=== PATIENT | female | born 1990 | race Caucasian/White ===

== ENCOUNTER 2018-05-25 20:40 | Inpatient (IN) | payer MEDICAID ==
[~2018-05-25] VITALS: Ht 167.6 cm; Wt 75.6 kg
[2018-05-25 20:56] VITALS: BP 122/83
[2018-05-25 21:32] LABS: PH, VENOUS 7.469 pH (7.320-7.420)
[2018-05-25 21:37] LABS: BASOPHILS # (AUTO) 0.04 x10^3/uL (0-0.1); BASOPHILS % (AUTO) 0 % (0-1); EOSINOPHILS # (AUTO) 0.02 x10^3/uL (0-0.4); EOSINOPHILS % (AUTO) 0 % (1-7); LYMPHOCYTES # (AUTO) 1.63 x10^3/uL (1-3.4); LYMPHOCYTES % (AUTO) 11 % (22-44); MD NO; MEAN CORPUSCULAR HEMOGLOBIN 36.4 pg (27.0-34.8); MEAN CORPUSCULAR HGB CONC 34.9 g/dL (32.4-35.8); MEAN CORPUSCULAR VOLUME 104.2 fL (80-100); MEAN PLATELET VOLUME 8.1 fL (7.4-10.4); MONOCYTES # (AUTO) 0.98 x10^3/uL (0.2-0.8); MONOCYTES % (AUTO) 7 % (2-9); NEUTROPHILS # (AUTO) 12.03 x10^3/uL (1.8-6.8); NEUTROPHILS % (AUTO) 82 % (42-75); PLATELET COUNT 353 x10^3/uL (130-400); RED BLOOD COUNT 4.31 x10^6/uL (3.82-5.3)
[2018-05-25 21:41] LABS: ACETONE, SERUM Negative (Negative)
[2018-05-25 21:50] LABS: MICROSCOPIC AUTO
[2018-05-25 21:52] LABS: ALBUMIN 3.5 g/dL (3.4-5.0); ANION GAP 15 mmol/L (5-15); CALCIUM 9.1 mg/dL (8.5-10.1); CHLORIDE 97 mmol/L (98-107); CREATININE 1.07 mg/dL (0.55-1.02)
[2018-05-25] MEDS ORDERED: KETOROLAC 30 MG/1 ML IVPush ONE (22:00)
[2018-05-25] MEDS ORDERED: SODIUM CHLORIDE 0.9% 1,000ML IVBOLUS ONE (22:00)
[2018-05-25] MEDS ORDERED: PROCHLORPERAZINE 5 MG/ML, 2ML IVPush ONE (22:00)
[2018-05-25] MEDS ORDERED: PROCHLORPERAZINE 5 MG/ML, 2ML ONE (22:03)
[2018-05-25] MEDS ORDERED: KETOROLAC 30 MG/1 ML ONE (22:03)
[2018-05-25 22:15] LABS: CULTURE INDICATED? YES
[2018-05-25] MEDS ORDERED: CEFTRIAXONE PMX 1GM/50ML 50 ML ONE (22:28)
[2018-05-25] MEDS ORDERED: PLEASE ENTER ALLERGIES MC SCH (22:30)
[2018-05-25] MEDS ORDERED: CEFTRIAXONE 1,000 MG in SODIUM CHLORIDE 0.9% 50 ML IVPB ONE (22:30)
[2018-05-25 22:54] LABS: ALBUMIN 2.9 g/dL (3.4-5.0); BILIRUBIN, DIRECT 0.5 mg/dL (0.1-0.2)
[2018-05-25 22:57] LABS: BILIRUBIN,INDIRECT 0.9 mg/dL (0.0-2.0); BILIRUBIN,TOTAL 1.4 mg/dL (0.2-1.0)
[2018-05-25] MEDS ORDERED: BISACODYL 10 MG SUPP PR PRN (23:30)
[2018-05-25] MEDS ORDERED: DOCUSATE 100 MG CAPSULE PO PRN (23:30)
[2018-05-25] MEDS ORDERED: ONDANSETRON 2MG/ML, 2ML IVPush PRN (23:30)
[2018-05-25] MEDS ORDERED: ONDANSETRON ODT 4 MG PO PRN (23:30)
[2018-05-25] MEDS: SODIUM CHLORIDE 0.9% 1,000 ML IV SCH ×2 (23:32)
[2018-05-26 00:25] LABS: HEMOGLOBIN A1C 8.7 % (4.2-6.3)
[2018-05-26] MEDS ORDERED: INSU100C5 SQ-INSULIN (01:17)
[2018-05-26] MEDS: SODIUM CHLORIDE 0.9% 1,000 ML IV SCH ×4 (01:56→20:32)
[2018-05-26] MEDS: ACETAMINOPHEN 325 MG TABLET PO PRN ×2 (01:58→11:03)
[2018-05-26 03:02] LABS: ANION GAP 11 mmol/L (5-15); CALCIUM 7.4 mg/dL (8.5-10.1); CHLORIDE 103 mmol/L (98-107); CREATININE 0.75 mg/dL (0.55-1.02)
[2018-05-26 03:10] LABS: BASOPHILS # (AUTO) 0.03 x10^3/uL (0-0.1); BASOPHILS % (AUTO) 0 % (0-1); EOSINOPHILS # (AUTO) 0.03 x10^3/uL (0-0.4); EOSINOPHILS % (AUTO) 0 % (1-7); LYMPHOCYTES # (AUTO) 1.84 x10^3/uL (1-3.4); LYMPHOCYTES % (AUTO) 21 % (22-44); MD NO; MEAN CORPUSCULAR HEMOGLOBIN 36.1 pg (27.0-34.8); MEAN CORPUSCULAR HGB CONC 34.7 g/dL (32.4-35.8); MEAN PLATELET VOLUME 7.9 fL (7.4-10.4); MONOCYTES # (AUTO) 0.73 x10^3/uL (0.2-0.8); MONOCYTES % (AUTO) 8 % (2-9); NEUTROPHILS # (AUTO) 6.19 x10^3/uL (1.8-6.8); NEUTROPHILS % (AUTO) 70 % (42-75); PLATELET COUNT 245 x10^3/uL (130-400); RED BLOOD COUNT 3.65 x10^6/uL (3.82-5.3); RED CELL DISTRIBUTION WIDTH 14.7 % (9.6-15.2)
[2018-05-26 03:16] VITALS: BP 107/70
[2018-05-26 08:00] VITALS: BP 122/83
[2018-05-26] MEDS: SENNA/DOCUSATE TABLET PO SCH (09:00)
[2018-05-26] MEDS: KETOROLAC 30 MG/1 ML IVPush PRN ×3 (09:47→22:19)
[2018-05-26 10:12] LABS: HEMOGLOBIN A1C 8.4 % (4.2-6.3)
[2018-05-26 13:39] VITALS: BP 130/89
[2018-05-26 19:46] VITALS: BP 135/93
[2018-05-26] MEDS ORDERED: CEFTRIAXONE 1,000 MG IV SCH (21:00)
[2018-05-26] MEDS: CEFTRIAXONE 1,000 MG in SODIUM CHLORIDE 0.9% 50 ML IVPB SCH (22:20)
[2018-05-27 01:28] VITALS: BP 133/92
[2018-05-27] MEDS: KETOROLAC 30 MG/1 ML IVPush PRN ×4 (04:18→23:07)
[2018-05-27 04:41] LABS: ANION GAP 9 mmol/L (5-15); CALCIUM 8.1 mg/dL (8.5-10.1); CHLORIDE 103 mmol/L (98-107); CREATININE 0.77 mg/dL (0.55-1.02)
[2018-05-27] MEDS: SODIUM CHLORIDE 0.9% 1,000 ML IV SCH (06:36)
[2018-05-27 06:47] VITALS: BP 141/92
[2018-05-27] MEDS: SENNA/DOCUSATE TABLET PO SCH (08:14)
[2018-05-27] MEDS ORDERED: MAGNESIUM SULFATE PMX 2GM/50ML 50 ML IV ONE (09:30)
[2018-05-27 12:28] VITALS: BP 125/86
[2018-05-27 19:06] VITALS: BP 109/73
[2018-05-27] MEDS: CEFTRIAXONE 1,000 MG in SODIUM CHLORIDE 0.9% 50 ML IVPB SCH (22:10)
[2018-05-28 02:14] VITALS: BP 139/93
[2018-05-28] MEDS: KETOROLAC 30 MG/1 ML IVPush PRN (05:19)
[2018-05-28 05:44] LABS: ANION GAP 6 mmol/L (5-15); CALCIUM 8.7 mg/dL (8.5-10.1); CHLORIDE 99 mmol/L (98-107); CREATININE 0.87 mg/dL (0.55-1.02)
[2018-05-28 06:46] VITALS: BP 148/93
[2018-05-28] MEDS: SENNA/DOCUSATE TABLET PO SCH (07:44)
[2018-05-28] MEDS ORDERED: SULF-169 PO (08:21)
== END 2018-05-28 09:49 | disposition home or self-care (01) | DRG 872 ==
LOC: ED 23:16 → EDIP 23:20 → 3NE 23:25 → DCLOUNGE 05-28 09:45
PROVIDERS: ADMIT Hospitalist; ATTEND Hospitalist
DX: A41.9 Sepsis, unspecified organism (principal); N17.9 Acute kidney failure, unspecified; N10 Acute pyelonephritis; E87.1 Hypo-osmolality and hyponatremia; E83.42 Hypomagnesemia; E10.65 Type 1 diabetes mellitus with hyperglycemia; R65.20 Severe sepsis without septic shock; E86.1 Hypovolemia; Z79.4 Long term (current) use of insulin; F17.200 Nicotine dependence, unspecified, uncomplicated; Z96.41 Presence of insulin pump (external) (internal); D75.89 Other specified diseases of blood and blood-forming organs; M54.9 Dorsalgia, unspecified; B96.89 Other specified bacterial agents as the cause of diseases classified elsewhere; Z82.5 Family history of asthma and other chronic lower respiratory diseases; Z82.49 Family history of ischemic heart disease and other diseases of the circulatory system
CPT/HCPCS: 36415; 80048; 80076; 81001; 82010; 82040; 82803; 82962; 83036; 83605; 83690; 83735; 84703; 85025; 87040; 87077; 87086; 87186; 96365; 99291; J0696; J1885; J0780; J3475; J7030

== ENCOUNTER 2018-06-16 12:17 | Emergency (ER) | payer MEDICAID ==
[~2018-06-16] VITALS: Ht 170.2 cm; Wt 72.8 kg
[~2018-06-16 12:17] MED LIST: INSU100C5 SQ-INSULIN; SULF-169 PO
[2018-06-16] MEDS ORDERED: SODIUM CHLORIDE 0.9% 1,000ML IV ONE (13:30)
[2018-06-16] MEDS ORDERED: SODIUM CHLORIDE FLUSH 10ML SYR IVF ONE (13:30)
[2018-06-16] MEDS ORDERED: KETOROLAC 30 MG/1 ML IVPush ONE (13:30)
[2018-06-16] MEDS ORDERED: KETOROLAC 30 MG/1 ML ONE (13:36)
[2018-06-16 13:57] LABS: MICROSCOPIC INDICATED
[2018-06-16 14:01] LABS: ALANINE AMINOTRANSFERASE 20 U/L (12-78); ALBUMIN 3.4 g/dL (3.4-5.0); ANION GAP 8 mmol/L (5-15); CALCIUM 8.8 mg/dL (8.5-10.1); CHLORIDE 99 mmol/L (98-107); CREATININE 0.76 mg/dL (0.55-1.02)
[2018-06-16 14:04] LABS: BASOPHILS # (AUTO) 0.01 x10^3/uL (0-0.1); BASOPHILS % (AUTO) 0 % (0-1); EOSINOPHILS # (AUTO) 0.01 x10^3/uL (0-0.4); EOSINOPHILS % (AUTO) 0 % (1-7); LYMPHOCYTES # (AUTO) 0.96 x10^3/uL (1-3.4); LYMPHOCYTES % (AUTO) 8 % (22-44); MD NO; MEAN CORPUSCULAR HEMOGLOBIN 35.7 pg (27.0-34.8); MEAN CORPUSCULAR HGB CONC 34.5 g/dL (32.4-35.8); MEAN CORPUSCULAR VOLUME 103.4 fL (80-100); MEAN PLATELET VOLUME 8.3 fL (7.4-10.4); MONOCYTES # (AUTO) 0.71 x10^3/uL (0.2-0.8); MONOCYTES % (AUTO) 6 % (2-9); NEUTROPHILS # (AUTO) 10.26 x10^3/uL (1.8-6.8); NEUTROPHILS % (AUTO) 86 % (42-75); PLATELET COUNT 240 x10^3/uL (130-400); RED BLOOD COUNT 3.69 x10^6/uL (3.82-5.3); RED CELL DISTRIBUTION WIDTH 14.4 % (9.6-15.2)
[2018-06-16 14:06] LABS: ALKALINE PHOSPHATASE 108 U/L (45-117); BILIRUBIN,TOTAL 1.3 mg/dL (0.2-1.0); TOTAL PROTEIN 7.5 g/dL (6.4-8.2)
[2018-06-16 14:10] LABS: CULTURE INDICATED? YES
[2018-06-16 15:11] VITALS: BP 128/87
== END 2018-06-16 15:32 | disposition home or self-care (01) ==
LOC: ED 14:19
DX: N39.0 Urinary tract infection, site not specified (principal); E11.65 Type 2 diabetes mellitus with hyperglycemia
CPT/HCPCS: 36415; 80053; 81001; 83605; 84145; 84703; 85025; 87077; 87086; 87186; 96361; 96374; 99285; J1885; J7030

== ENCOUNTER 2018-07-05 20:38 | Inpatient (IN) | payer MEDICAID ==
[~2018-07-05] VITALS: Ht 170.2 cm; Wt 72.9 kg
[2018-07-05] MEDS ORDERED: KETOROLAC 30 MG/1 ML IVPush ONE (21:30)
[2018-07-05] MEDS ORDERED: MORPHINE SULFATE 4 MG/ML, 1ML IVPush PRN (21:30)
[2018-07-05] MEDS ORDERED: SODIUM CHLORIDE FLUSH 10ML SYR IVF ONE (21:30)
[2018-07-05] MEDS ORDERED: SODIUM CHLORIDE 0.9% 1,000ML IVBOLUS ONE (21:30)
[2018-07-05] MEDS ORDERED: KETOROLAC 30 MG/1 ML ONE (21:41)
[2018-07-05] MEDS ORDERED: MORPHINE SULFATE 4 MG/ML, 1ML ONE (21:41)
[2018-07-05 22:09] LABS: MEAN CORPUSCULAR HEMOGLOBIN 34.6 pg (27.0-34.8); MEAN CORPUSCULAR HGB CONC 34.9 g/dL (32.4-35.8); MEAN CORPUSCULAR VOLUME 99.2 fL (80-100); MEAN PLATELET VOLUME 8.1 fL (7.4-10.4); PLATELET COUNT 414 x10^3/uL (130-400); RED CELL DISTRIBUTION WIDTH 14.4 % (9.6-15.2)
[2018-07-05 22:22] LABS: ALANINE AMINOTRANSFERASE 9 U/L (12-78); ALBUMIN 2.5 g/dL (3.4-5.0); ANION GAP 13 mmol/L (5-15); CALCIUM 8.7 mg/dL (8.5-10.1); CHLORIDE 96 mmol/L (98-107); CREATININE 0.77 mg/dL (0.55-1.02)
[2018-07-05 22:27] LABS: ALKALINE PHOSPHATASE 116 U/L (45-117); BILIRUBIN,TOTAL 0.8 mg/dL (0.2-1.0); TOTAL PROTEIN 7.6 g/dL (6.4-8.2)
[2018-07-05 22:32] LABS: BASOPHILS # (AUTO) 0.03 x10^3/uL (0-0.1); BASOPHILS % (AUTO) 0 % (0-1); EOSINOPHILS # (AUTO) 0.03 x10^3/uL (0-0.4); EOSINOPHILS % (AUTO) 0 % (1-7); LYMPHOCYTES # (AUTO) 2.07 x10^3/uL (1-3.4); LYMPHOCYTES % (AUTO) 12 % (22-44); MD SCAN; MONOCYTES # (AUTO) 1.61 x10^3/uL (0.2-0.8); MONOCYTES % (AUTO) 9 % (2-9); NEUTROPHILS # (AUTO) 13.32 x10^3/uL (1.8-6.8); NEUTROPHILS % (AUTO) 78 % (42-75)
[2018-07-05 23:11] LABS: CULTURE INDICATED? YES; MICROSCOPIC INDICATED
[2018-07-05] MEDS ORDERED: CEFTRIAXONE PMX 1GM/50ML 50 ML ONE (23:37)
[2018-07-06] MEDS ORDERED: ONDANSETRON ODT 4 MG PO PRN
[2018-07-06] MEDS ORDERED: hydrALAzine 20 MG/ML, 1ML IVPush PRN
[2018-07-06] MEDS ORDERED: IBUPROFEN 600 MG TABLET PO PRN
[2018-07-06] MEDS ORDERED: CEFTRIAXONE 1,000 MG in SODIUM CHLORIDE 0.9% 50 ML IV ONE
[2018-07-06] MEDS ORDERED: ONDANSETRON 2MG/ML, 2ML IVPush PRN
[2018-07-06] MEDS ORDERED: POTASSIUM CHLORIDE 20 MEQ TAB.ER.PRT PO ONE
[2018-07-06] MEDS ORDERED: PROMETHAZINE 25 MG/ML, 1ML IM PRN
[2018-07-06] MEDS ORDERED: CEFTRIAXONE 1,000 MG in SODIUM CHLORIDE 0.9% 50 ML IV SCH
[2018-07-06 00:45] VITALS: BP 122/84
[2018-07-06] MEDS: SODIUM CHLORIDE 0.9% 1,000 ML IV SCH ×4 (01:30→22:00)
[2018-07-06] MEDS: INSULIN GLARGINE 100 UNITS/ML, PEN SQ-INSULIN SCH ×2 (01:39→20:14)
[2018-07-06 05:06] LABS: MEAN CORPUSCULAR HEMOGLOBIN 33.6 pg (27.0-34.8); MEAN CORPUSCULAR HGB CONC 33.8 g/dL (32.4-35.8); MEAN CORPUSCULAR VOLUME 99.4 fL (80-100); MEAN PLATELET VOLUME 8.3 fL (7.4-10.4); PLATELET COUNT 328 x10^3/uL (130-400); RED BLOOD COUNT 3.27 x10^6/uL (3.82-5.3); RED CELL DISTRIBUTION WIDTH 14.1 % (9.6-15.2)
[2018-07-06 05:17] LABS: ANION GAP 8 mmol/L (5-15); CHLORIDE 99 mmol/L (98-107); CREATININE 0.64 mg/dL (0.55-1.02)
[2018-07-06 05:41] LABS: BASOPHILS # (AUTO) 0.05 x10^3/uL (0-0.1); BASOPHILS % (AUTO) 0 % (0-1); EOSINOPHILS # (AUTO) 0.09 x10^3/uL (0-0.4); EOSINOPHILS % (AUTO) 1 % (1-7); LYMPHOCYTES # (AUTO) 2.01 x10^3/uL (1-3.4); LYMPHOCYTES % (AUTO) 16 % (22-44); MD SCAN; MONOCYTES # (AUTO) 1.18 x10^3/uL (0.2-0.8); MONOCYTES % (AUTO) 10 % (2-9); NEUTROPHILS % (AUTO) 73 % (42-75)
[2018-07-06 06:48] VITALS: BP 118/82
[2018-07-06] MEDS ORDERED: INSULIN LISPRO 100 UNITS/ML, PEN SQ-INSULIN SCH (07:00)
[2018-07-06] MEDS ORDERED: MAGNESIUM SULFATE PMX 2GM/50ML 50 ML IV ONE (09:00)
[2018-07-06] MEDS: ACETAMINOPHEN 325 MG TABLET PO PRN ×3 (10:29→22:19)
[2018-07-06] MEDS: POTASSIUM CHLORIDE 20 MEQ TAB.ER.PRT PO SCH ×2 (11:58→17:12)
[2018-07-06] MEDS: INSULIN LISPRO 100 UNITS/ML, PEN SQ-INSULIN SCH ×3 (12:20→20:14)
[2018-07-06 12:48] VITALS: BP 125/85
[2018-07-06] MEDS: LEVOFLOXACIN/PMX 750MG/150ML 150 ML IV SCH (16:54)
[2018-07-06 20:32] VITALS: BP 127/89
[2018-07-06] MEDS: ENOXAPARIN 40 MG/0.4 ML SQ SCH ×2 (22:11)
[2018-07-07 01:51] VITALS: BP 136/92
[2018-07-07] MEDS ORDERED: INSULIN LISPRO 100 UNITS/ML, PEN SQ-INSULIN ONE (03:30)
[2018-07-07] MEDS: SODIUM CHLORIDE 0.9% 1,000 ML IV SCH ×3 (03:33→18:40)
[2018-07-07 08:29] VITALS: BP 142/94
[2018-07-07] MEDS: INSULIN LISPRO 100 UNITS/ML, PEN SQ-INSULIN SCH ×4 (08:35→22:05)
[2018-07-07] MEDS: POTASSIUM CHLORIDE 20 MEQ TAB.ER.PRT PO SCH (08:36)
[2018-07-07] MEDS: INSULIN GLARGINE 100 UNITS/ML, PEN SQ-INSULIN SCH ×2 (08:36→22:05)
[2018-07-07] MEDS: ACETAMINOPHEN 325 MG TABLET PO PRN ×4 (08:36→22:46)
[2018-07-07 14:29] VITALS: BP 146/99
[2018-07-07] MEDS: LEVOFLOXACIN/PMX 750MG/150ML 150 ML IV SCH (17:22)
[2018-07-07 19:48] VITALS: BP 154/85
[2018-07-08] MEDS: SODIUM CHLORIDE 0.9% 1,000 ML IV SCH ×2 (01:06→07:41)
[2018-07-08 01:09] VITALS: BP 134/93
[2018-07-08] MEDS: ACETAMINOPHEN 325 MG TABLET PO PRN ×5 (04:20→22:47)
[2018-07-08 07:28] VITALS: BP 121/87
[2018-07-08] MEDS: INSULIN GLARGINE 100 UNITS/ML, PEN SQ-INSULIN SCH ×2 (08:34→20:14)
[2018-07-08] MEDS: INSULIN LISPRO 100 UNITS/ML, PEN SQ-INSULIN SCH ×4 (08:34→20:14)
[2018-07-08] MEDS: BENZONATATE 100 MG CAPSULE PO SCH ×3 (08:35→20:14)
[2018-07-08] MEDS: GUAIFENESIN ER 600 MG TABLET PO SCH ×2 (08:35→20:14)
[2018-07-08] MEDS: metroNIDAZOLE 500 MG TABLET PO SCH ×2 (08:36→20:15)
[2018-07-08] MEDS ORDERED: OMNIPAQUE 350 MG/ML, 100ML BOTTLE ONE (09:44)
[2018-07-08 13:29] VITALS: BP 128/89
[2018-07-08] MEDS ORDERED: INSULIN GLARGINE 100 UNITS/ML, PEN SQ-INSULIN SCH (14:00)
[2018-07-08] MEDS ORDERED: LEVOFLOXACIN 750 MG TABLET PO SCH (15:00)
[2018-07-08 19:19] VITALS: BP 129/89
[2018-07-08] MEDS: ENOXAPARIN 40 MG/0.4 ML SQ SCH ×2 (23:06)
[2018-07-09 04:01] VITALS: BP 120/84
[2018-07-09] MEDS: ACETAMINOPHEN 325 MG TABLET PO PRN ×2 (04:08→08:55)
[2018-07-09 07:16] VITALS: BP 114/81
[2018-07-09] MEDS ORDERED: INSULIN GLARGINE 100 UNITS/ML, PEN SQ-INSULIN SCH ×2 (07:30→21:00)
[2018-07-09] MEDS: metroNIDAZOLE 500 MG TABLET PO SCH (08:08)
[2018-07-09] MEDS: GUAIFENESIN ER 600 MG TABLET PO SCH (08:08)
[2018-07-09] MEDS: BENZONATATE 100 MG CAPSULE PO SCH (08:08)
[2018-07-09] MEDS: INSULIN LISPRO 100 UNITS/ML, PEN SQ-INSULIN SCH (08:09)
[2018-07-09 09:28] LABS: ANION GAP 8 mmol/L (5-15); CHLORIDE 96 mmol/L (98-107); CREATININE 0.74 mg/dL (0.55-1.02)
[2018-07-09 09:44] LABS: MEAN CORPUSCULAR HEMOGLOBIN 33.7 pg (27.0-34.8); MEAN CORPUSCULAR HGB CONC 34.4 g/dL (32.4-35.8); MEAN CORPUSCULAR VOLUME 98.1 fL (80-100); RED BLOOD COUNT 3.81 x10^6/uL (3.82-5.3); RED CELL DISTRIBUTION WIDTH 13.7 % (9.6-15.2)
[2018-07-09 09:45] LABS: MEAN PLATELET VOLUME 7.7 fL (7.4-10.4); PLATELET COUNT 464 x10^3/uL (130-400)
[2018-07-09 09:46] LABS: BASOPHILS # (AUTO) 0.04 x10^3/uL (0-0.1); BASOPHILS % (AUTO) 1 % (0-1); EOSINOPHILS # (AUTO) 0.13 x10^3/uL (0-0.4); EOSINOPHILS % (AUTO) 2 % (1-7); LYMPHOCYTES % (AUTO) 33 % (22-44); MD SCAN; MONOCYTES # (AUTO) 0.64 x10^3/uL (0.2-0.8); MONOCYTES % (AUTO) 11 % (2-9); NEUTROPHILS # (AUTO) 2.98 x10^3/uL (1.8-6.8); NEUTROPHILS % (AUTO) 52 % (42-75)
[2018-07-09] MEDS ORDERED: GUAI600T31 PO (11:32)
[2018-07-09] MEDS ORDERED: BENZ-17 PO (11:32)
[2018-07-09] MEDS ORDERED: LEVO750T26 PO (11:32)
[2018-07-09] MEDS ORDERED: METR500T PO (11:32)
== END 2018-07-09 12:13 | disposition home or self-care (01) | DRG 689 ==
LOC: ED 21:35 → EDIP 23:32 → SUATTDRO 23:41 → 3NW 07-06 00:33 → 3NE 07-06 13:59 → DCLOUNGE 07-09 12:00
PROVIDERS: ADMIT Hospitalist; ATTEND Hospitalist
DX: N39.0 Urinary tract infection, site not specified (principal); E43 Unspecified severe protein-calorie malnutrition; B96.89 Other specified bacterial agents as the cause of diseases classified elsewhere; D64.9 Anemia, unspecified; E10.65 Type 1 diabetes mellitus with hyperglycemia; Z68.25 Body mass index [BMI] 25.0-25.9, adult; N76.0 Acute vaginitis; Z87.891 Personal history of nicotine dependence
CPT/HCPCS: 36415; 74022; 74177; 80048; 80053; 81001; 82962; 83690; 83735; 84100; 84703; 85025; 87040; 87077; 87086; 87186; 87491; 87591; 87806; 96361; 96365; 96375; G0378; J0696; J1885; J1956; Q9967; G0475; J1815; J3475; J7030

== ENCOUNTER 2018-07-31 19:07 | Emergency (ER) | payer MEDICAID ==
[~2018-07-31] VITALS: Ht 170.2 cm; Wt 74.0 kg
[~2018-07-31 19:07] MED LIST changes: +BENZ-17 PO; +GUAI600T31 PO; +LEVO750T26 PO; +METR500T PO
[2018-07-31 19:21] VITALS: BP 145/101
[2018-07-31] MEDS ORDERED: FLUORESCEIN OPHTHALMIC 1 MG STRIP EACHEYE ONE (19:30)
[2018-07-31] MEDS ORDERED: PROPARACAINE OPHTH 0.5%, 15ML EACHEYE ONE (19:30)
[2018-07-31 20:10] LABS: MICROSCOPIC NOT IND
== END 2018-07-31 20:47 | disposition home or self-care (01) ==
LOC: ED 20:00
DX: H18.823 Corneal disorder due to contact lens, bilateral (principal); E11.9 Type 2 diabetes mellitus without complications; F17.210 Nicotine dependence, cigarettes, uncomplicated
CPT/HCPCS: 81003; 99283

== ENCOUNTER 2018-08-06 09:37 | Emergency (ER) | payer MEDICAID ==
[~2018-08-06] VITALS: Ht 170.2 cm; Wt 72.9 kg
[2018-08-06] MEDS ORDERED: PROPARACAINE OPHTH 0.5%, 15ML ONE (10:16)
[2018-08-06 11:14] VITALS: BP 143/100
[2018-08-06] MEDS ORDERED: PROPARACAINE OPHTH 0.5%, 15ML EACHEYE ONE (11:30)
== END 2018-08-06 11:21 | disposition home or self-care (01) ==
LOC: ED 10:46
DX: H10.021 Other mucopurulent conjunctivitis, right eye (principal); H01.004 Unspecified blepharitis left upper eyelid; H01.001 Unspecified blepharitis right upper eyelid; F17.200 Nicotine dependence, unspecified, uncomplicated; E11.9 Type 2 diabetes mellitus without complications
CPT/HCPCS: 99283

== ENCOUNTER 2018-09-01 09:11 | Emergency (ER) | payer MEDICAID ==
[~2018-09-01] VITALS: Ht 170.2 cm; Wt 73.4 kg
[2018-09-01] MEDS ORDERED: SODIUM CHLORIDE FLUSH 10ML SYR IVF ONE (10:00)
[2018-09-01] MEDS ORDERED: SODIUM CHLORIDE 0.9% 1,000ML IVBOLUS ONE ×2 (10:00→11:30)
[2018-09-01 10:13] LABS: PH, VENOUS 7.414 pH (7.320-7.420)
[2018-09-01 10:15] LABS: BASOPHILS # (AUTO) 0.03 x10^3/uL (0-0.1); BASOPHILS % (AUTO) 1 % (0-1); EOSINOPHILS # (AUTO) 0.02 x10^3/uL (0-0.4); EOSINOPHILS % (AUTO) 1 % (1-7); LYMPHOCYTES # (AUTO) 1.78 x10^3/uL (1-3.4); LYMPHOCYTES % (AUTO) 48 % (22-44); MD NO; MEAN CORPUSCULAR HEMOGLOBIN 33.3 pg (27.0-34.8); MEAN CORPUSCULAR HGB CONC 34.2 g/dL (32.4-35.8); MEAN CORPUSCULAR VOLUME 97.4 fL (80-100); MEAN PLATELET VOLUME 7.8 fL (7.4-10.4); MONOCYTES # (AUTO) 0.33 x10^3/uL (0.2-0.8); MONOCYTES % (AUTO) 9 % (2-9); NEUTROPHILS # (AUTO) 1.55 x10^3/uL (1.8-6.8); NEUTROPHILS % (AUTO) 42 % (42-75); PLATELET COUNT 270 x10^3/uL (130-400); RED BLOOD COUNT 4.24 x10^6/uL (3.82-5.3); RED CELL DISTRIBUTION WIDTH 14.6 % (9.6-15.2)
[2018-09-01 10:17] LABS: FIO2 ROOM AIR %
[2018-09-01] MEDS ORDERED: ONDANSETRON 2MG/ML, 2ML ONE (10:22)
[2018-09-01 10:26] LABS: ALBUMIN 3.4 g/dL (3.4-5.0); ANION GAP 15 mmol/L (5-15); CALCIUM 8.3 mg/dL (8.5-10.1); CHLORIDE 97 mmol/L (98-107)
[2018-09-01] MEDS ORDERED: ONDANSETRON 2MG/ML, 2ML IVPush ONE ×2 (10:30→14:00)
[2018-09-01 10:31] LABS: MICROSCOPIC NOT IND
[2018-09-01 10:32] LABS: CULTURE INDICATED? NO
[2018-09-01 10:50] LABS: ACETONE, SERUM Trace (10mg/dL) mg/dL (Negative)
[2018-09-01 13:02] VITALS: BP 115/71
[2018-09-01] MEDS ORDERED: MORPHINE SULFATE 4 MG/ML, 1ML IVPush PRN (14:00)
== END 2018-09-01 14:33 | disposition home or self-care (01) ==
LOC: ED 10:20
DX: E11.65 Type 2 diabetes mellitus with hyperglycemia (principal); F10.239 Alcohol dependence with withdrawal, unspecified; F17.200 Nicotine dependence, unspecified, uncomplicated
CPT/HCPCS: 80048; 80307; 81003; 81025; 82010; 82040; 82803; 82962; 85025; 96361; 96374; 99284; J2405; J7030